=== PATIENT | female | born 1980 | race Caucasian/White ===

== ENCOUNTER 2019-05-20 06:40 | Observation (INO) | payer OTHER ==
[~2019-05-20] VITALS: Ht 162.6 cm; Wt 77.6 kg
[2019-05-20] MEDS ORDERED: PREN-182 MT (08:29)
== END 2019-05-20 08:30 | disposition home or self-care (01) ==
LOC: 8 EST LDRP 06:40
PROVIDERS: ADMIT Obstetrics & Gynecology; ATTEND Obstetrics & Gynecology
DX: O26.893 Other specified pregnancy related conditions, third trimester (principal); R10.9 Unspecified abdominal pain; Z3A.39 39 weeks gestation of pregnancy
CPT/HCPCS: 99281; G0378